=== PATIENT | male | born 1960 | race Caucasian/White ===

== ENCOUNTER 2019-03-19 16:46 | Outpatient (CLI) | payer MEDICAID | END 2019-03-19 16:47 | disposition critical access hospital (66) | LOC: EMS 16:46 | PROVIDERS: ATTEND Surgery | DX: R07.9 Chest pain, unspecified (principal) | CPT/HCPCS: A0425; A0427; A0999 ==

== ENCOUNTER 2019-03-19 17:13 | Emergency (ER) | payer MEDICAID ==
--- NOTE | 2019-03-19 17:28 | ED Physician Documentation ---
PD HPI CHEST PAIN - Stated complaint Stated Complaint: CP - Chief complaint Chief Complaint: Cardiac - History obtained from History obtained from: Patient - History of Present Illness Timing - onset: Today (59-year-old gentleman with known coronary disease. 5 stents in the past. His pick remover is Dr. Hickey in [place]. About an hour ago while at rest he developed substernal chest ache and feeling weird all over with nausea and sweats. He denies pedal edema or calf pain. Prehospital EKG was without ST elevation or depression, he did have T wave inversion inferiorly. He had aspirin prior to arrival and also nitroglycerin which was ineffective in changing his pain.) Review of Systems Ten Systems: 10 systems reviewed and negative Constitutional: reports: Reviewed and negative Ears: reports: Reviewed and negative Throat: reports: Reviewed and negative Respiratory: reports: Reviewed and negative GI: reports: Reviewed and negative PD PAST MEDICAL HISTORY - Past Medical History Past Medical History: Yes Cardiovascular: Hypertension, Coronary artery disease - Past Surgical History Cardiovascular: Coronary stent, Angioplasty - Present Medications Home Medications: Ambulatory Orders Medication Instructions Recorded Confirmed Ezetimibe [Zetia] 10 mg PO 03/19/19 Losartan [Cozaar] 50 mg PO DAILY 03/19/19 03/19/19 RX: Aspirin Chewable [[facility] [place] 81 mg 03/19/19 Aspirin] RX: Metoprolol Succinate 25 mg PO 03/19/19 RX: Nitroglycerin 0.4 mg SL 03/19/19 RX: Rosuvastatin Calcium 5 mg 03/19/19 RX: Spironolactone 25 mg PO 03/19/19 - Allergies Allergies/Adverse Reactions: Allergies Allergy/AdvReac Type Severity Reaction Status Date / Time No Known Drug Allergies Allergy Verified 03/19/19 17:21 - Social History Smoking Status: Former smoker - Family History Family history: reports: Non contributory PD ED PE NORMAL - Vitals Vital signs reviewed: Yes - General General: Alert and oriented X 3, Other (He looks anxious and sweaty) - HEENT HEENT: PERRL, EOMI - Neck Neck: Supple, no meningeal sign, No bony TTP - Cardiac Cardiac: RRR, No murmur - Respiratory Respiratory: No respiratory distress, Clear bilaterally - Abdomen Abdomen: Normal bowel sounds, Soft, Non tender - Back Back: No CVA TTP, No spinal TTP - Derm Derm: Normal color, Warm and dry - Extremities Extremities: No edema, No calf tenderness / cord - Neuro Neuro: Alert and oriented X 3, Normal speech - Psych Psych: Normal mood, Normal affect Results - Vitals Vitals: Vital Signs - 24 hr 03/19/19 03/19/19 03/19/19 17:17 17:28 18:45 Temperature 35.9 C L Heart Rate 65 62 61 Respiratory 18 15 20 Rate Blood Pressure 116/85 H 116/85 H 121/87 H O2 Saturation 98 96 98 03/19/19 03/19/19 20:20 22:33 Temperature Heart Rate 60 53 L Respiratory 14 17 Rate Blood Pressure 127/89 H 113/82 H O2 Saturation 97 96 Oxygen O2 Source Room air - EKG (time done) 1727 Rate: Rate (enter#) (60) Rhythm: NSR [place]: Normal Intervals: Normal GA QRS: Normal Ischemia: Other (Small inferior Q waves with mildly inverted T waves in [address] elevation or depression. No priors to compare with.) - Labs Labs: Laboratory Tests 03/19/19 03/19/19 03/19/19 17:36 17:36 17:36 WBC 8.2 RBC 4.53 L Hgb 12.9 L Hct 39.2 L MCV 86.5 MCH 28.5 MCHC 32.9 RDW 14.3 Plt Count 184 MPV 10.2 Neut # (Auto) 6.5 Lymph # (Auto) 1.0 L [place] # (Auto) 0.6 Eos # (Auto) 0.1 Baso # (Auto) 0.0 Absolute Nucleated RBC 0.00 Nucleated RBC % 0.0 Sodium 141 Potassium 4.5 Chloride 105 Carbon Dioxide 24 Anion Gap 12.0 BUN 37 H Creatinine 2.3 H Estimated GFR (MDRD) 29 L Glucose 95 Calcium 10.9 H Total Bilirubin 0.8 AST 27 ALT 28 Alkaline Phosphatase 67 Troponin I High Sens 7.7 Total Protein 8.3 H Albumin 4.9 Globulin 3.4 Albumin/Globulin Ratio 1.4 Lipase 24 03/19/19 19:42 WBC RBC Hgb Hct MCV MCH MCHC RDW Plt Count MPV Neut # (Auto) Lymph # (Auto) [place] # (Auto) Eos # (Auto) Baso # (Auto) Absolute Nucleated RBC Nucleated RBC % Sodium Potassium Chloride Carbon Dioxide Anion Gap BUN Creatinine Estimated GFR (MDRD) Glucose Calcium Total Bilirubin AST ALT Alkaline Phosphatase Troponin I High Sens 67.1 H* Total Protein Albumin Globulin Albumin/Globulin Ratio Lipase PD MEDICAL DECISION MAKING - ED course ED course: This is 59-year-old gentleman with known coronary disease who presents with chest pain, it resolved shortly after arrival here. His EKG shows T wave inversion, but no ST depression or elevation. There are no priors available for comparison. He lives in [place]. He is not aware of any renal dysfunction before but I do not have any prior labs to compare with. His initial troponin was reassuring, but his second troponin went up significantly confirming that the episode he has was probably unstable angina versus non-STEMI. He was started on a heparin drip and given metoprolol. He was pain-free at that time. [facility] was called for transfer where his pick remover is, but they were full. He was willing to see if [facility] had any beds. Subsequently he was accepted to inpatient status at [facility] by Dr. Dimitris Green. [place] were completed. - Critical Care Time(min): 42 Time Includes: Direct patient care, Review records, Reassess patient, Document care, Coordinate care, Medical consult Data interpretation: Labs, Pulse ox Procedures included in critical care time: Peripheral IV Procedures excluded from critical care time: EKG Departure - Departure Disposition: 02 Transfer Acute Care Hosp Clinical Impression: NSTEMI (non-ST elevated myocardial infarction) Condition: Serious Discharge Date/Time: 03/19/19 23:04
[2019-03-19 17:45] LABS: BASOPHILS % (AUTO) 0.4 %; EOSINOPHILS # (AUTO) 0.1 10^3/uL (0.0-0.7); EOSINOPHILS % (AUTO) 0.7 %; HGB - HEMOGLOBIN 12.9 g/dL (14.0-18.0); LYMPHOCYTES % (AUTO) 11.9 %; MEAN CORPUSCULAR HEMOGLOBIN 28.5 pg (27.0-31.0); MEAN CORPUSCULAR HGB CONC 32.9 g/dL (32.0-36.0); MEAN CORPUSCULAR VOLUME 86.5 fL (80.0-94.0); MEAN PLATELET VOLUME 10.2 fL (7.4-11.4); MONOCYTES # (AUTO) 0.6 10^3/uL (0.0-1.0); MONOCYTES % (AUTO) 6.7 %; NEUTROPHILS # (AUTO) 6.5 10^3/uL (1.5-6.6); NEUTROPHILS % (AUTO) 79.9 %; PLT - PLATELET COUNT 184 10^3/uL (130-450); RED BLOOD COUNT 4.53 10^6/uL (4.70-6.10); RED CELL DISTRIBUTION WIDTH 14.3 % (12.0-15.0); WHITE BLOOD COUNT 8.2 x10^3/uL (4.8-10.8)
[2019-03-19 18:04] LABS: ALBUMIN 4.9 g/dL (3.2-5.5); ALBUMIN/GLOBULIN RATIO 1.4 (1.0-2.2); BILIRUBIN,TOTAL 0.8 mg/dL (0.2-1.0); CALCIUM 10.9 mg/dL (8.5-10.3); CREATININE 2.3 mg/dL (0.6-1.2); TOTAL PROTEIN 8.3 g/dL (6.7-8.2)
--- NOTE | 2019-03-19 18:23 | XRAY Report ---
Reason: chest pain Procedure Date: 03/19/2019 Accession Number: [id number] / [id number] Procedure: XR - Chest 1 View X-Ray CPT Code: 49429 FULL RESULT: EXAM: CHEST RADIOGRAPHY EXAM DATE: 03/19/2019 06:00 PM. CLINICAL HISTORY: Chest pain. COMPARISON: None. TECHNIQUE: 1 view. FINDINGS: Lungs/Pleura: No focal opacities evident. No pleural effusion. No pneumothorax. Mediastinum: Within exam limitations, the cardiomediastinal contour is normal. Other: None. IMPRESSION: Normal single view chest. [facility]
[2019-03-19] MEDS ORDERED: METOPROLOL TARTRATE 50 MG TABLET PO STA (20:21)
[2019-03-19] MEDS ORDERED: HEPARIN 25000UNITS/500ML (D5W) 25,000 UNIT/500 ML BAG IV STA (20:21)
[2019-03-19 22:34] VITALS: BP 113/82
== END 2019-03-19 23:04 | disposition short-term general hospital (02) ==
LOC: ED 17:13
DX: I21.4 Non-ST elevation (NSTEMI) myocardial infarction (principal); I25.10 Atherosclerotic heart disease of native coronary artery without angina pectoris; Z95.5 Presence of coronary angioplasty implant and graft; I10 Essential (primary) hypertension; Z79.82 Long term (current) use of aspirin; Z87.891 Personal history of nicotine dependence
CPT/HCPCS: 36415; 71045; 80053; 83690; 84484; 85025; 93005; 96374; 99285; 99291; A9270

== ENCOUNTER 2019-03-19 23:04 | Outpatient (CLI) | payer MEDICAID | END 2019-03-19 23:05 | disposition short-term general hospital (02) | LOC: EMS 23:04 | PROVIDERS: ATTEND Surgery | DX: I21.4 Non-ST elevation (NSTEMI) myocardial infarction (principal) | CPT/HCPCS: A0425; A0426; A0999 ==